=== PATIENT | male | born 1965 | race Caucasian/White ===

== ENCOUNTER 2018-10-10 09:03 | Outpatient (CLI) | payer MEDICARE ==
[2018-10-10] MEDS ORDERED: Iopamidol 370 76% 100 ML VIAL ONE (10:27)
--- NOTE | 2018-10-10 11:41 | ULT ---
ABDOMINAL AORTIC ULTRASOUND: INDICATIONS: Heart disease. Atherosclerotic vascular disease. FINDINGS: Limited evaluation of the aorta due to overlying bowel gas. The proximal aorta is mostly obscured. The mid abdominal aorta measures 1.9 cm in diameter. The distal abdominal aorta is measured at 1.5 c m. The common iliac arteries appear normal in caliber. Atherosclerotic changes are seen throughout the abdominal aorta. Color Doppler with spectral analysi s demonstrates flow throughout the abdominal aorta. IMPRESSION: 1. Atherosclerotic changes of the aorta. 2. No evidence of aneurysm. POS: [facility]
--- NOTE | 2018-10-10 13:12 | CT ---
CT CHEST WITH CONTRAST: Multiple axial tomograms were obtained through the chest with IV enhancement. INDICATION: Followup pulmonary nodule. COMPARISON: Comparison is made to chest CT of 07/10/2016. That exam described a pleural-based nodular density po steriorly located in the superior segment of the right lower lobe. FINDINGS: At the site of the previously noted pleural-based nodular density, there continues to be an area of a bnormality. This appears to reside in the posterior right upper lobe near the fissure. It was previ ously described as residing in the superior segment of the right lower lobe. There is focal pleural thickening at this level and there is a persistent small nodular density which now measures approxima tely 7 mm. This nodular density has continued to decrease in size when compared to 2016 at which marcela e it measured up to 2 cm on the coronal plane. On the coronal image today, there is some spiculation associated with this nodule with the overall measurement of approximately 1.0 cm. Craniocaudal dimen margie. The lungs otherwise remain clear. There are chronic parenchymal changes. A small bleb/bulla in the apices again noted. The mediastinum is unremarkable with nonspecific lymph nodes which appear stable . Images through the upper abdomen show a left lobe renal cyst which is stable. IMPRESSION: 1. The pleural-based nodular lesion seen posteriorly in the inferior aspect of the right upper lobe has decreased in size. There continues to be a small nodule present with spiculation measuring up to 1.0 cm today in the coronal plane. POS: [facility]
== END 2018-10-10 09:04 | disposition home or self-care (01) ==
LOC: ULT 09:03
PROVIDERS: ATTEND Internal Medicine
DX: R91.1 Solitary pulmonary nodule (principal); I25.10 Atherosclerotic heart disease of native coronary artery without angina pectoris; I70.0 Atherosclerosis of aorta; Z72.89 Other problems related to lifestyle
CPT/HCPCS: 71260; 76775

== ENCOUNTER 2019-03-13 05:45 | Day surgery (SDC) | payer MEDICARE ==
[2019-03-12 15:28] VITALS: BMI 26.6
[2019-03-13] MEDS ORDERED: Lidocaine 1% (PF) 30 ML VIAL ONE (08:31)
[2019-03-13] MEDS ORDERED: Fentanyl 100 MCG/2 ML VIAL ONE (08:50)
[2019-03-13] MEDS ORDERED: Midazolam HCl 2 mg/2 ml Vial ONE (08:50)
[2019-03-13] MEDS ORDERED: Iopamidol 370 76% 100 ML VIAL ONE (11:01)
== END 2019-03-13 12:55 | disposition home or self-care (01) ==
LOC: CCL 05:45
PROVIDERS: ATTEND Internal Medicine Cardiovascular Disease
PROC: 4A023N7 Measurement of Cardiac Sampling and Pressure, Left Heart, Percutaneous Approach (ICD-10-PCS; principal; 2019-03-13)
PROC: B2111ZZ Fluoroscopy of Multiple Coronary Arteries using Low Osmolar Contrast (ICD-10-PCS; 2019-03-13)
DX: I25.10 Atherosclerotic heart disease of native coronary artery without angina pectoris (principal); T82.858A Stenosis of other vascular prosthetic devices, implants and grafts, initial encounter; I25.2 Old myocardial infarction; I11.0 Hypertensive heart disease with heart failure; I50.22 Chronic systolic (congestive) heart failure; I25.5 Ischemic cardiomyopathy; I47.2 Ventricular tachycardia; E78.00 Pure hypercholesterolemia, unspecified; E78.5 Hyperlipidemia, unspecified; F17.210 Nicotine dependence, cigarettes, uncomplicated; Z79.82 Long term (current) use of aspirin; Z79.899 Other long term (current) drug therapy
CPT/HCPCS: 93458; 99152; C1760; C1769; J1644; J2001; J2250; J3010; Q9967

== ENCOUNTER 2023-06-11 14:25 | Outpatient (CLI) | payer MEDICARE | END 2023-06-11 14:26 | disposition home or self-care (01) | LOC: RAD 14:25 | PROVIDERS: ATTEND Physician Assistant | DX: Z72.0 Tobacco use (principal) | CPT/HCPCS: 71046 ==